=== PATIENT | male | born 1975 | race Caucasian/White ===

== ENCOUNTER 2018-09-27 12:14 | Emergency (ER) | payer OTHER ==
[~2018-09-27] VITALS: Ht 185.4 cm; Wt 77.1 kg
[~2018-09-27 12:14] MED LIST: AEROECLIPSE II1 EACH MC; AUGMENTIN 875875 MG PO; BACTRIM DS TAB1 EACH PO; CIPRO250 M1 PO; DOXYCYCLINE 10100 MG PO; IBUPROFEN 200200 M1 PO; IBUPROFEN 800800 M1 PO; NAPROSYN500 MG PO; NORCO 5-325 TA1 EACH PO; PERCOCET PO; PREDNISONE 20 M20 MG PO; TESSALON PERLE100 MG PO
[2018-09-27] MEDS ORDERED: MEDROLDOSEPACK PO (14:07)
[2018-09-27] MEDS ORDERED: NORCO 5-325 TA1 EACH PO (14:07)
[2018-09-27 14:27] VITALS: BP 128/76
== END 2018-09-27 14:27 | disposition home or self-care (01) ==
LOC: M.ERS 12:14
DX: M54.5 Low back pain (principal); M54.6 Pain in thoracic spine; F17.210 Nicotine dependence, cigarettes, uncomplicated; F90.9 Attention-deficit hyperactivity disorder, unspecified type; E11.9 Type 2 diabetes mellitus without complications; Z88.6 Allergy status to analgesic agent; Z88.8 Allergy status to other drugs, medicaments and biological substances

== ENCOUNTER 2018-10-01 20:04 | Emergency (ER) | payer OTHER ==
[~2018-10-01] VITALS: Ht 185.4 cm; Wt 71.0 kg
[~2018-10-01 20:04] MED LIST changes: +MEDROLDOSEPACK PO
[2018-10-01] MEDS ORDERED: ACCUNEB SO1.25 MG/1 INH (20:14)
[2018-10-01 20:40] LABS: ABSOLUTE EOSINOPHILS 0.1 thou/uL (0.0-0.7); ABSOLUTE LYMPHOCYTES 1.7 thou/uL (0.8-5.3); ABSOLUTE MONOCYTES 0.5 thou/uL (0.0-1.2); ABSOLUTE NEUTROPHILS 5.2 thou/uL (1.6-8.1); BASOPHILS 0.6 %; EOSINOPHILS 0.9 %; HEMATOCRIT 44.2 % (42.0-52.0); HEMOGLOBIN 14.5 gm/dL (14.0-18.0); MCH 29.7 pg (26.0-34.0); MCHC 32.8 g/dL (28.0-37.0); MCV 90.6 fL (80.0-100.0); MPV 8.4 fl. (7.2-11.1); NUCLEATED RBCS 0 /100WBC; PLATELET COUNT* 419 thou/uL (150-400); POLYS 69.5 %; RBC 4.88 mil/uL (4.50-6.00); RDW-CV 13.3 % (10.5-14.5); WBC 7.5 thou/uL (4.0-11.0)
[2018-10-01 20:48] LABS: ANION GAP 9 mmol/L (7-16); BUN 11 mg/dL (7-18); CALCIUM 8.4 mg/dL (8.5-10.1); CHLORIDE 95 mmol/L (98-107); CO2 26 mmol/L (21-32); SODIUM 130 mmol/L (136-145)
[2018-10-01 20:54] LABS: ALBUMIN 3.5 g/dL (3.4-5.0); ALKALINE PHOSPHATASE 106 U/L (46-116); LIPASE 150 U/L (73-393); SGOT 8 U/L (15-37); SGPT 19 U/L (30-65); TOTAL BILIRUBIN 0.6 mg/dL (<0.1-1.0); TROPONIN-I LEVEL <0.06 ng/mL (<0.06)
[2018-10-01 20:56] LABS: GLUCOSE 668 mg/dL (70-99)
[2018-10-01 21:25] LABS: BE -2.3 mmol/L (-2 to +3); PCO2 35.4 mmHg (35.0-45.0); PO2 93.7 mmHg (75.0-100.0); pH 7.406 (7.340-7.450)
[2018-10-01] MEDS ORDERED: AMOXICILLIN875 MG PO (23:09)
[2018-10-01] MEDS ORDERED: CYCLOBENZAPRINE5 MG PO (23:09)
[2018-10-01 23:44] VITALS: BP 91/53
--- NOTE | 2018-10-02 10:23 | EKG ---
[place] [address] ELECTROCARDIOGRAM REPORT Name: CARLOSKALIECUATE COLON Room: 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
== END 2018-10-01 23:44 | disposition home or self-care (01) ==
LOC: M.ERS 20:04
PROVIDERS: Personal Emergency Response Attendant
DX: M54.5 Low back pain (principal); E11.65 Type 2 diabetes mellitus with hyperglycemia; F90.9 Attention-deficit hyperactivity disorder, unspecified type; F17.210 Nicotine dependence, cigarettes, uncomplicated; Z88.6 Allergy status to analgesic agent; Z88.8 Allergy status to other drugs, medicaments and biological substances

== ENCOUNTER 2020-10-28 00:41 | Emergency (ER) | payer MEDICAID ==
[~2020-10-28] VITALS: Ht 182.9 cm; Wt 48.1 kg
[~2020-10-28 00:41] MED LIST changes: +ACCUNEB SO1.25 MG/1 INH; +AMOXICILLIN875 MG PO; +CYCLOBENZAPRINE5 MG PO
[2020-10-28] MEDS ORDERED: NOVOLOG FL100 UNIT/M SUBQ (00:46)
[2020-10-28] MEDS ORDERED: COMBIVENT INH (00:46)
[2020-10-28 02:32] VITALS: BP 122/74
--- NOTE | 2020-10-28 11:42 | EKG ---
[place] [address] ELECTROCARDIOGRAM REPORT Name: CARLOSKALIELAQUITA COLONON Lei Room: 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 10/28/20 1142 0055 0055 Kwesi Jay MD, [facility] /EPI
== END 2020-10-28 02:32 | disposition home or self-care (01) ==
LOC: M.ERS 00:41
DX: E11.65 Type 2 diabetes mellitus with hyperglycemia (principal); F17.210 Nicotine dependence, cigarettes, uncomplicated; Z88.8 Allergy status to other drugs, medicaments and biological substances; Z88.6 Allergy status to analgesic agent; Z91.013 Allergy to seafood; Z79.899 Other long term (current) drug therapy

== ENCOUNTER 2020-12-29 22:14 | Emergency (ER) | payer MEDICAID ==
[~2020-12-29] VITALS: Ht 185.4 cm; Wt 52.2 kg
[~2020-12-29 22:14] MED LIST changes: +COMBIVENT INH; +NOVOLOG FL100 UNIT/M SUBQ
[2020-12-29] MEDS ORDERED: PERCOCET 5-3251 EACH PO (22:28)
[2020-12-29 23:12] LABS: BE 3.3 mmol/L (-2 to +3); PCO2 VENOUS 45.4 mmHg (41.0-51.0); PO2 VENOUS 57.1 mmHg (35.0-45.0)
[2020-12-29 23:24] LABS: CALCIUM 9.4 mg/dL (8.5-10.1); POTASSIUM 3.9 mmol/L (3.5-5.1)
[2020-12-30 02:25] VITALS: BP 122/76
== END 2020-12-30 02:25 | disposition home or self-care (01) ==
LOC: M.ERS 22:14
PROVIDERS: Emergency Medicine
DX: E11.65 Type 2 diabetes mellitus with hyperglycemia (principal); F17.210 Nicotine dependence, cigarettes, uncomplicated; Z88.6 Allergy status to analgesic agent; Z91.013 Allergy to seafood